=== PATIENT | female | born 1990 | race African-American/Black ===

== ENCOUNTER 2017-01-23 13:48 | Emergency (ER) | payer SELFPAY ==
[2017-01-23 14:17] LABS: Bilirubin Negative (Negative); Blood, Urine Negative (Negative); Glucose, Urine (Dipstick) Negative (Negative); Ketone, Urine Negative (Negative); Nitrite Negative (Negative); Protein, Urine (Dipstick) Negative (Neg-Trace); Urobilinogen 0.2 mg/dL (0.2-1.0)
[2017-01-23] MEDS ORDERED: Lidocaine 1% PF 5 ML VIAL ONE (16:28)
[2017-01-23] MEDS ORDERED: cefTRIAXone\\ROCEPHIN 250 MG VIAL ONE (16:28)
[2017-01-23] MEDS ORDERED: Azithromycin 250 MG TAB ONE (16:28)
[2017-01-23] MEDS ORDERED: metroNIDAZOLE 250 MG TAB ONE (16:55)
== END 2017-01-23 17:09 | disposition home or self-care (01) ==
LOC: ERS 13:48
DX: R10.30 Lower abdominal pain, unspecified (principal); R10.2 Pelvic and perineal pain; F41.9 Anxiety disorder, unspecified; F32.9 Major depressive disorder, single episode, unspecified
CPT/HCPCS: 81003; 81025; 87086; 87480; 87491; 87510; 87591; 87660; 96372; J0696; J2001